=== PATIENT | female | born 1940 | race Caucasian/White ===

== ENCOUNTER 2023-06-17 12:21 | Day surgery (SDC) | payer MEDICARE, SELFPAY ==
[2023-06-17 12:40] VITALS: BP 133/85; PULSE 65; RESP 16; TEMP 36.6; O2SAT 98
--- NOTE | 2023-06-17 12:46 | W.ANESPRE ---
General Info Date of Service Date Performed: 06/17/23 Height: 5 ft 4 in Weight: 72.6 kg Body Mass Index (BMI): 27.4 Surgical Procedure: Operation Date: 06/17/23 13:40 Proposed Procedure Side Surgeon p Cataract Extraction with IOL Implant Left Heriberto Andrew MD Meds Allergies and Home Medications Allergies Allergy/AdvReac Type Severity Reaction Status Date / Time aspirin Allergy Hives Verified 06/17/23 12:30 azithromycin AdvReac Nausea Verified 06/17/23 12:30 Home Medication Medication Instructions Recorded atorvastatin 40 mg tablet 40 mg PO DAILY 06/17/23 cholecalciferol (vitamin D3) 50 2,000 unit PO DAILY 06/17/23 mcg (2,000 unit) capsule (Vitamin D3) lisinopril 20 mg tablet 20 mg PO DAILY 06/17/23 pantoprazole 40 mg tablet,delayed 40 mg PO DAILY 06/17/23 release ticagrelor 90 mg tablet (Brilinta) 90 mg PO DAILY 06/17/23 trazodone 50 mg tablet 50 mg PO PRN PRN 06/17/23 Current Visit Medications: Current Medications Generic Name Dose Route Start Last Admin Trade Name Freq PRN Reason Stop Dose Admin Acetaminophen 1,000 mg 06/17/23 06:00 Acetaminophen 500 Mg Tab PO 07/17/23 05:59 Q4H PRN PRN Balanced Salt Solution 500 ml 06/17/23 06:00 Balanced Salt Soln.-Plus 500 Ml Bag OP 07/17/23 05:59 DIRECTED TORI Miscellaneous Medication 0 ml 06/17/23 06:00 Prednisolone 1%, Moxifloxacin 0.5%, Nepafenac 0.1% 5ml Btl OS 07/17/23 05:59 DIRECTED TORI Miscellaneous Medication 0 ml 06/17/23 06:00 Tropicam./Phenyleph. 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 Medical History Medical History Essential hypertension Lumbago Osteoporosis Sciatica TIA (transient ischemic attack) Aug 2022-left posterior tempor-occiptal region Surgical History Surgical History H/O colonoscopy H/O lithotripsy History of carpal tunnel release S/P dilatation and curettage S/P medial meniscectomy of left knee 06/2005 S/P T&A (status post tonsillectomy and adenoidectomy) Tobacco Smoking/Tobacco Use Status: Never Alcohol Alcohol Intake: never Substance Use Substance use: Never Substance use type: does not use Vital Signs and Lab Results Vital Signs Most Recent Vital Signs in EMR: Most Recent Vital Signs Temp Pulse Resp BP Pulse Ox 36.6 C 65 16 133/85 98 06/17/23 12:40 06/17/23 12:40 06/17/23 12:40 06/17/23 12:40 06/17/23 12:40 Lab Results Blood Type / Crossmatch: No Data to Display Complete Blood Count: No Data to Display Complete Metabolic Panel: No Data to Display Liver Function Panel: No Data to Display Coagulation Panel: No Data to Display Cardiac Panel: No Data to Display Arterial Blood Gas: No Data to Display Venous Blood Gas: No Data to Display Pancreas Panel: No Data to Display Thyroid Panel: No Data to Display Infectious Disease: No Data to Display Blood Cultures: No Data to Display Toxicology Panel: No Data to Display Anesthesia Assessment and Plan Anesthesia History Personal History: No History of Anesthesia Complications Family History: No Family History of Anesthesia Complications Exercise Tolerance Exercise Tolerance: Metabolic Equivalents>4 Pertinent Negatives Pertinent Negatives: No Symptoms of GERD Cardiac & Pulmonary Exam Cardiac Exam: Normal S1/S2 Heart Sounds Pulmonary Exam: Clear Bilateral Breath Sounds Implantable Cardiac Device Does patient have a Pacemaker or an ICD?: No Airway Exam Known Difficult Airway: No Mallampati Class: 1 Mouth Opening: Normal (> 3cm) Thyromental Distance: Greater than 3 cm Neck Range of Motion: Full ROM Neck Circumference: Normal Teeth Condition: Normal Dentition ASA Classification ASA Score: ASA 2 Emergency Case?: No NPO Status NPO Status: NPO Clears >2 hours, Solids >8 hours Anesthesia Plan Resuscitation Status: Full Code Anesthesia Technique: MAC Anesthesia Airway Planned: Natural Airway Monitors Used: Standard Monitors Preoperative Comments:: Pt declines MKO
[2023-06-17] MEDS: Tropicam./Phenyleph. (1/2.5%) 5 ML BTL OS ×3 (12:47→13:03)
[2023-06-17 12:51] VITALS: BMI 27.4
[2023-06-17] MEDS: Balanced Salt Soln.-PLUS 500 ML BAG OP (13:50)
[2023-06-17] MEDS: Tetracaine 0.5% 4 ML BTL OS (13:51)
[2023-06-17] MEDS: Duovisc Viscoelastic System EACH 1 EACH (13:52)
[2023-06-17] MEDS: Lidocaine 1% Pres-Free 5 ML VIAL (13:52)
[2023-06-17] MEDS: Povidone-Iodine Ophth 30 ML BTL (13:54)
[2023-06-17] MEDS: Phenylephrine/Lidocaine (15/10) MG/ML 1 ML VIAL (13:54)
[2023-06-17 14:08] VITALS: BP 137/73; PULSE 67; RESP 16; TEMP 36.2; O2SAT 99
--- NOTE | 2023-06-17 14:11 | W.PM.DSUDISC ---
Date of service: 06/17/23 Time of Service: 14:11 Discharge Plan Disposition Patient Disposition: Home Discharge Details Attending Provider: Heriberto Andrew Primary Care Provider: Kelly Padron Home Meds and New Rx's Prescriptions: No Action atorvastatin 40 mg tablet 40 mg PO DAILY Patient Comments: TAKE 1 TABLET BY MOUTH ONCE DAILY trazodone 50 mg tablet 50 mg PO PRN PRN lisinopril 20 mg tablet 20 mg PO DAILY Patient Comments: TAKE 1 TABLET BY MOUTH ONCE DAILY pantoprazole 40 mg tablet,delayed release (DR/EC) 40 mg PO DAILY Patient Comments: TAKE 1 TABLET BY MOUTH ONCE DAILY cholecalciferol (vitamin D3) [Vitamin D3] 50 mcg (2,000 unit) Capsule 2,000 unit PO DAILY Brilinta 90 mg tablet 90 mg PO DAILY Patient Comments: TAKE 1 TABLET BY MOUTH TWICE DAILY Discharge Instructions Stand Alone Forms: Post-op Topical Cataract, Landen Ganey (DSU) Discharge Orders Discharge Orders: Discharge Order (Routine); Ordered 06/17/23 Ordered By: Heriberto Andrew DS: Diagnosis Discharge Diagnosis (1) Nuclear age-related cataract, left eye: Status: Resolved (2) Cortical age-related cataract, left eye: Status: Resolved
--- NOTE | 2023-06-17 14:11 | W.PM.OP ---
Date of service: 06/17/23 Time of Service: 14:12 Operative Note Operative Note DATE OF PROCEDURE: 06/17/23 PRE-OP DIAGNOSIS: Nuclear/cortical cataract, left eye POST-OP DIAGNOSIS: same PROCEDURE: Cataract extraction using phacoemulsification with intraocular lens implant, left eye SURGEON: Heriberto Andrew ANESTHESIA TYPE: Local By Surgeon and MAC Refer to Anesthesia Record PATHOLOGY: none sent COMPLICATIONS: None Patient was transported to: same day Patient's condition: stable Implants: Vishal and Vishal Tecnis Eyhance [id number] Indications: Progressive decreased vision due to cataract, left eye Procedure Description: CATARACT SURGERY OPERATIVE REPORT PREOPERATIVE DIAGNOSIS: 1. Nuclear/cortical cataract, left eye POSTOPERATIVE DIAGNOSIS: Same OPERATION: 1. Cataract extraction using phacoemulsification with posterior chamber intraocular lens implant, left eye. IOL: IOL Hearing Aid Repair Technician/Model: Vishal & Vishal Tecnis Eyhance [id number] IOL Power: + 19.5 diopters IOL Serial Number: [id number] Optic Diameter: 6.0 mm Haptic/Overall Diameter: 13.0 mm PHACO INFO: DaneBaro[employer]oldon Vision System with OZil and Active Fluidics Cumulative Dispersed Energy (CDE): 9.93 seconds SURGEON: Heriberto Andrew MD, STEFANY ANESTHESIA: Monitored A [facility] (MAC), with local sub-tenon's anesthetic infiltration COMPLICATIONS: None SPECIMENS: None INDICATIONS FOR PROCEDURE: The patient is an 82-year-old lady with history of diminished visual acuity in her left eye secondary to the development of nuclear/cortical cataract. She is significantly symptomatic that she desires cataract surgery and attempt to improve and maximize her vision. The option of cataract surgery was offered to the patient and she wished to proceed. See office notes for detailed information. PROCEDURE: The correct surgical eye was identified and marked as the left eye and the pupil was dilated in the preoperative area using mydriatics and cycloplegics. The dilated pupil size was 6.0 mm. The patient elected to proceed without oral sedation. The patient was brought to the operating room where cardiopulmonary monitoring was instituted and surgical time-out was performed, confirming the correct operative eye and IOL power. Topical anesthesia was administered and ophthalmic povidone-iodine 5% was instilled into the conjunctival fornices. The epi-ocular area was prepped with Betadine 10% solution and draped in the usual sterile fashion for intraocular surgery, including an aperture drape. A Tegaderm transparent film dressing was cut in half and used to cover the lashes and lid margins. Care was taken to sequester the lashes and lid margins under the Tegaderm dressing. A lid speculum was placed between the lids of the operative eye and the Dane LuxOR Revalia operating microscope was maneuvered into position. Marleny scissors were then used to make a conjunctival buttonhole approximately 6mm posterior to the limbus in the inferonasal quadrant. Blunt dissection was carried out to expose bare sclera, and a blunt-tipped sub-tenon?s anesthesia cannula was introduced and passed posteriorly along the globe where non-preserved plain lidocaine was injected into posterior sub-Tenon?s space. A sideport knife was used to make a paracentesis port. Intraocular phenylephrine/lidocaine was injected into the anterior chamber.. The anterior chamber was filled with viscoelastic. A keratome knife was used to construct a 2-plane near-clear corneal tunnel extending 2.0mm into clear cornea. A flap was raised on the anterior capsule and capsulorhexis forceps were used to complete a continuous curvilinear capsulorhexis of 5.0 mm. Balanced salt solution was then used to perform cortical cleaving hydrodissection and nuclear hydrodelineation until the lens could be freely rotated within the capsular bag. The lens nucleus was then disassembled and removed within the capsular bag and iris plane using phacoemulsification. Residual cortical material was removed using the irrigation/aspiration handpiece. The posterior capsule was carefully polished to remove as much residual lens epithelial cells as safely possible. The capsular bag was then inflated and the anterior chamber deepened with viscoelastic. The lens implant described above was inserted into the capsular bag using the Vishal and Vishal Simplicity pre-loaded injector. A Kuglen hook was used to dial the IOL into position. Residual viscoelastic was then removed first from posterior to the IOL, then from the anterior chamber using the I/A handpiece. The lens implant was noted to center nicely within the capsular bag. The incisions were stromally hydrated, and the anterior chamber was reformed using BSS. Then 0.5cc of moxifloxacin 1.0mg/ml were injected into the capsular bag and anterior chamber. The incisions were checked with a Weck spear and found to be secure. Several drops of ophthalmic povidone-iodine 5% were then applied to the eye followed by two drops of Imprimis combination prednisolone/moxifloxacin/nepafenac solution. The drapes were removed and a clear plastic protective eye shield was placed over the eye. The patient was then returned to Same Day Surgery in stable condition.
--- NOTE | 2023-06-17 14:22 | W.ANESPOSTOP ---
Postoperative Evaluation Date, Time and Location Date Performed: 06/17/23 Time Performed: 14:23 Patient Location: Day Surgery Unit Vital Signs Most Recent Imported Vital Signs: Most Recent Vital Signs Temp Pulse Resp BP Pulse Ox 36.2 C L 67 16 137/73 99 06/17/23 14:08 06/17/23 14:08 06/17/23 14:08 06/17/23 14:08 06/17/23 14:08 Pain Score Most Recent Pain Score: Most Recent Pain Score Pain Level 0 06/17/23 14:08 Assessment Mental Status: Awake (Alert & Oriented to Patient Baseline) Airway and Respiratory Function: Patent airway with normal (patient baseline) respiratory exam Cardiovascular Function: Hemodynamically Stable Hydration Status: Adequately Hydrated Nausea & Vomiting: No Nausea or Vomiting Pain: Pt. Denies Any Pain Peripheral Nerve Block: Patient did not receive a nerve block
== END 2023-06-17 14:30 | disposition home or self-care (01) ==
LOC: SUR 12:23
PROVIDERS: PCP General Practice; Visit Provider Ophthalmology
PROC: (CPT 66984; principal; 2023-06-17 13:30)
DX: H25.12 Age-related nuclear cataract, left eye (principal); H25.012 Cortical age-related cataract, left eye; I10 Essential (primary) hypertension
CPT/HCPCS: 66984; V2632

== ENCOUNTER 2023-06-24 06:57 | Day surgery (SDC) | payer MEDICARE, SELFPAY ==
[2023-06-24 07:05] VITALS: BP 129/71; PULSE 62; RESP 16; TEMP 36.1; O2SAT 97
[2023-06-24] MEDS: Tropicam./Phenyleph. (1/2.5%) 5 ML BTL OD ×3 (07:18→07:34)
--- NOTE | 2023-06-24 07:37 | ANES.PREOP_ITS ---
General Info Date of Service Date Performed: 06/24/23 Height: 5 ft 4 in Weight: 72.8 kg Body Mass Index (BMI): 27.5 Surgical Procedure: Operation Date: 06/24/23 08:25 Proposed Procedure Side Surgeon p Cataract Extraction with IOL Implant Right Heriberto Andrew MD Meds Allergies and Home Medications Allergies Allergy/AdvReac Type Severity Reaction Status Date / Time aspirin Allergy Hives Verified 06/24/23 07:16 azithromycin AdvReac Nausea Verified 06/24/23 07:16 Home Medication Medication Instructions Recorded atorvastatin 40 mg tablet 40 mg PO DAILY 06/17/23 cholecalciferol (vitamin D3) 50 2,000 unit PO DAILY 06/17/23 mcg (2,000 unit) capsule (Vitamin D3) lisinopril 20 mg tablet 20 mg PO DAILY 06/17/23 ticagrelor 90 mg tablet (Brilinta) 90 mg PO DAILY 06/17/23 trazodone 50 mg tablet 50 mg PO PRN PRN 06/17/23 Current Visit Medications: Current Medications Generic Name Dose Route Start Last Admin Trade Name Freq PRN Reason Stop Dose Admin Acetaminophen 1,000 mg 06/24/23 06:00 Acetaminophen 500 Mg Tab PO 07/24/23 05:59 Q4H PRN PRN Balanced Salt Solution 500 ml 06/24/23 06:00 Balanced Salt Soln.-Plus 500 Ml Bag OP 07/24/23 05:59 DIRECTED COUNTS INCLUDE 234 BEDS AT THE [facility] Miscellaneous Medication 0 ml 06/24/23 06:00 Prednisolone 1%, Moxifloxacin 0.5%, Nepafenac 0.1% 5ml Btl OD 07/24/23 05:59 DIRECTED TORI Miscellaneous Medication 0 ml 06/24/23 06:00 06/24/23 07:34 Tropicam./Phenyleph. 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 Nuclear age-related cataract, right eye H25.11 Medical History Medical History Essential hypertension Lumbago Osteoporosis Sciatica TIA (transient ischemic attack) Aug 2022-left posterior tempor-occiptal region Surgical History Surgical History (Updated 06/24/23 @ 07:16 by Kelly Puente) H/O colonoscopy H/O lithotripsy History of carpal tunnel release Hx of cataract extraction 05/2023 S/P dilatation and curettage S/P medial meniscectomy of left knee 06/2005 S/P T&A (status post tonsillectomy and adenoidectomy) Tobacco Smoking/Tobacco Use Status: Never Alcohol Alcohol Intake: never Substance Use Substance use: Never Substance use type: does not use Vital Signs and Lab Results Vital Signs Most Recent Vital Signs in EMR: Most Recent Vital Signs Temp Pulse Resp BP Pulse Ox 36.1 C L 62 16 129/71 97 06/24/23 07:05 06/24/23 07:05 06/24/23 07:05 06/24/23 07:05 06/24/23 07:05 Lab Results Blood Type / Crossmatch: No Data to Display Complete Blood Count: No Data to Display Complete Metabolic Panel: No Data to Display Liver Function Panel: No Data to Display Coagulation Panel: No Data to Display Cardiac Panel: No Data to Display Arterial Blood Gas: No Data to Display Venous Blood Gas: No Data to Display Pancreas Panel: No Data to Display Thyroid Panel: No Data to Display Infectious Disease: No Data to Display Blood Cultures: No Data to Display Toxicology Panel: No Data to Display Anesthesia Assessment and Plan Anesthesia History Personal History: No History of Anesthesia Complications Family History: No Family History of Anesthesia Complications Exercise Tolerance Exercise Tolerance: Metabolic Equivalents>4 Pertinent Negatives Pertinent Negatives: No Symptoms of GERD, No Major Cardiovascular Symptoms or Complaints and No Major Pulmonary Symptoms or Complaints Cardiac & Pulmonary Exam Cardiac Exam: Normal S1/S2 Heart Sounds Pulmonary Exam: Clear Bilateral Breath Sounds Implantable Cardiac Device Does patient have a Pacemaker or an ICD?: No Airway Exam Known Difficult Airway: No Mallampati Class: 1 Mouth Opening: Normal (> 3cm) Thyromental Distance: Greater than 3 cm Neck Range of Motion: Full ROM Neck Circumference: Normal Teeth Condition: Normal Dentition ASA Classification ASA Score: ASA 2 Emergency Case?: No NPO Status NPO Status: NPO Clears >2 hours, Solids >8 hours Anesthesia Plan Resuscitation Status: Full Code Anesthesia Technique: MAC Anesthesia Airway Planned: Natural Airway Monitors Used: Standard Monitors
[2023-06-24 08:17] VITALS: BMI 27.5
[2023-06-24] MEDS: Balanced Salt Soln.-PLUS 500 ML BAG OP (08:19)
[2023-06-24] MEDS: Tetracaine 0.5% 4 ML BTL OD (08:20)
[2023-06-24] MEDS: Duovisc Viscoelastic System EACH 1 EACH (08:20)
[2023-06-24] MEDS: Lidocaine 1% Pres-Free 5 ML VIAL (08:21)
[2023-06-24] MEDS: Povidone-Iodine Ophth 30 ML BTL (08:22)
[2023-06-24] MEDS: Phenylephrine/Lidocaine (15/10) MG/ML 1 ML VIAL (08:22)
[2023-06-24 08:40] VITALS: BP 140/73; PULSE 63; RESP 16; TEMP 36; O2SAT 98
--- NOTE | 2023-06-24 08:40 | W.PM.DSUDISC ---
Date of service: 06/24/23 Time of Service: 08:40 Discharge Plan Disposition Patient Disposition: Home Discharge Details Attending Provider: Heriberto Andrew Primary Care Provider: Kelly Padron Home Meds and New Rx's Prescriptions: No Action atorvastatin 40 mg tablet 40 mg PO DAILY Patient Comments: TAKE 1 TABLET BY MOUTH ONCE DAILY trazodone 50 mg tablet 50 mg PO PRN PRN lisinopril 20 mg tablet 20 mg PO DAILY Patient Comments: TAKE 1 TABLET BY MOUTH ONCE DAILY cholecalciferol (vitamin D3) [Vitamin D3] 50 mcg (2,000 unit) Capsule 2,000 unit PO DAILY Brilinta 90 mg tablet 90 mg PO DAILY Patient Comments: TAKE 1 TABLET BY MOUTH TWICE DAILY Discharge Instructions Stand Alone Forms: Post-op Topical Cataract, Landen López (DSU) Discharge Orders Discharge Orders: Discharge Order (Routine); Ordered 06/24/23 Ordered By: Heriberto Andrew DS: Diagnosis Discharge Diagnosis (1) Nuclear age-related cataract, right eye: Status: Resolved
--- NOTE | 2023-06-24 08:41 | W.PM.OP ---
Date of service: 06/24/23 Time of Service: 08:41 Operative Note Operative Note DATE OF PROCEDURE: 06/24/23 PRE-OP DIAGNOSIS: Nuclear cataract, right eye POST-OP DIAGNOSIS: same PROCEDURE: Cataract extraction using phacoemulsification with intraocular lens implant, right eye SURGEON: Heriberto Andrew ANESTHESIA TYPE: Local By Surgeon and MAC Refer to Anesthesia Record ESTIMATED BLOOD LOSS: 0 PATHOLOGY: none sent COMPLICATIONS: None Patient was transported to: same day Patient's condition: stable Implants: Vishal & Vishal Tecnis Eyhance DIB00 Indications: Progressive visual loss due to cataract, right eye Procedure Description: CATARACT SURGERY OPERATIVE REPORT PREOPERATIVE DIAGNOSIS: 1. Nuclear cataract, right eye POSTOPERATIVE DIAGNOSIS: Same OPERATION: 1. Cataract extraction using phacoemulsification with posterior chamber intraocular lens implant, right eye. IOL: IOL Soils Technician/Model: Vishal & Vishal Tecnis Eyhance DIB00 IOL Power: + 20.0 diopters IOL Serial Number: [id number] Optic Diameter: 6.0mm Haptic/Overall Diameter: 13.0mm PHACO INFO: Dane[employer]entio Vision System with OZil and Active Fluidics Cumulative Dispersed Energy (CDE): 11.53 seconds SURGEON: Heriberto Andrew MD, STEFANY ANESTHESIA: Monitored Anesthesia Care (MAC), with local sub-tenon's anesthetic infiltration COMPLICATIONS: None SPECIMENS: None INDICATIONS FOR PROCEDURE: The patient is an 82-year-old lady with history of diminished visual acuity in both eyes secondary to the development of bilateral cataracts. She has already undergone cataract surgery in the left eye and is doing well postoperatively. She now presents for cataract surgery in the right eye. See office notes for detailed information. PROCEDURE: The correct surgical eye was identified and marked as the right eye and the pupil was dilated in the preoperative area using mydriatics and cycloplegics. The dilated pupil size was 7.0 mm. The patient elected to proceed without oral sedation. The patient was brought to the operating room where cardiopulmonary monitoring was instituted and surgical time-out was performed, confirming the correct operative eye and IOL power. Topical anesthesia was administered and ophthalmic povidone-iodine 5% was instilled into the conjunctival fornices. The epi-ocular area was prepped with Betadine 10% solution and draped in the usual sterile fashion for intraocular surgery, including an aperture drape. A Tegaderm transparent film dressing was cut in half and used to cover the lashes and lid margins. Care was taken to sequester the lashes and lid margins under the Tegaderm dressing. A lid speculum was placed between the lids of the operative eye and the Dane LuxOR Revalia operating microscope was maneuvered into position. Marleny scissors were then used to make a conjunctival buttonhole approximately 6mm posterior to the limbus in the inferonasal quadrant. Blunt dissection was carried out to expose bare sclera, and a blunt-tipped sub-tenon?s anesthesia cannula was introduced and passed posteriorly along the globe where non-preserved plain lidocaine was injected into posterior sub-Tenon?s space. A sideport knife was used to make a paracentesis port. Intraocular phenylephrine/lidocaine was injected into the anterior chamber. The anterior chamber was filled with viscoelastic. A keratome knife was used to construct a 2-plane clear corneal tunnel extending 2.0mm into clear cornea. A flap was raised on the anterior capsule and capsulorhexis forceps were used to complete a continuous curvilinear capsulorhexis of 5.5 mm. Balanced salt solution was then used to perform cortical cleaving hydrodissection and nuclear hydrodelineation until the lens could be freely rotated within the capsular bag. The lens nucleus was then disassembled and removed within the capsular bag and iris plane using phacoemulsification. Residual cortical material was removed using the I/A handpiece. The posterior capsule was carefully polished to remove as much residual lens epithelial cells as safely possible. The capsular bag was then inflated and the anterior chamber deepened with cohesive viscoelastic. The lens implant described above was inserted into the capsular bag using the Vishal and Jt Simplicity pre-loaded injector. A Kuglen hook was used to dial the IOL into position. Residual viscoelastic was then removed first from posterior to the IOL, then from the anterior chamber using the I/A handpiece. The lens implant was noted to center nicely within the capsular bag. The incisions were stromally hydrated, and the anterior chamber was reformed using BSS. Then 0.5cc of moxifloxacin 1.0mg/ml were injected into the capsular bag and anterior chamber. The incisions were checked with a Weck spear and found to be secure. Several drops of ophthalmic povidone-iodine 5% were then applied to the eye followed by two drops of Imprimis combination prednisolone/moxifloxacin/nepafenac solution. The drapes were removed and a clear plastic protective eye shield was placed over the eye. The patient was then returned to Same Day Surgery in stable condition.
--- NOTE | 2023-06-24 08:54 | W.ANESPOSTOP ---
Postoperative Evaluation Date, Time and Location Date Performed: 06/24/23 Time Performed: 08:43 Patient Location: Day Surgery Unit Vital Signs Most Recent Imported Vital Signs: Most Recent Vital Signs Temp Pulse Resp BP Pulse Ox 36 C L 63 16 140/73 98 06/24/23 08:40 06/24/23 08:40 06/24/23 08:40 06/24/23 08:40 06/24/23 08:40 Pain Score Most Recent Pain Score: Most Recent Pain Score Pain Level 0 06/24/23 08:40 Assessment Mental Status: Awake (Alert & Oriented to Patient Baseline) Airway and Respiratory Function: Patent airway with normal (patient baseline) respiratory exam Cardiovascular Function: Hemodynamically Stable Hydration Status: Adequately Hydrated Nausea & Vomiting: No Nausea or Vomiting Pain: Pt. Denies Any Pain Peripheral Nerve Block: Patient did not receive a nerve block
== END 2023-06-24 09:07 | disposition home or self-care (01) ==
LOC: SUR 06:57
PROVIDERS: PCP General Practice; Visit Provider Ophthalmology
PROC: (CPT 66984; principal; 2023-06-24 08:15)
DX: H25.11 Age-related nuclear cataract, right eye (principal); I10 Essential (primary) hypertension; Z98.42 Cataract extraction status, left eye
CPT/HCPCS: 66984; V2632